=== PATIENT | male | born 1985 | race Caucasian/White ===

== ENCOUNTER 2019-03-06 20:31 | Emergency (ER) | payer SELFPAY ==
[2019-03-06] MEDS ORDERED: Ondansetron PF 4 MG/2 ML Vial ONE (21:12)
[2019-03-06] MEDS ORDERED: Lorazepam 2 MG/ML VIAL ONE ×2 (21:12→22:30)
[2019-03-06 21:32] LABS: #Lymphocytes 1.7 thou/uL (1.20-3.40); #Monocytes 0.2 thou/uL (0.11-0.59); #Neutrophils 1.6 thou/uL (1.40-6.50); %Basophils 0.8 % (0.0-1.0); %Eosinophils 0.4 % (0.0-10.0); %Lymphocytes 48.3 % (21.0-51.0); %Monocytes 5.1 % (0.0-10.0); %Neutrophils 45.5 % (42.0-75.0); Hemoglobin 15.8 g/dL (14.0-18.0); Mean Corpuscular HGB CONC 33.5 g/dL (32.0-36.0); Mean Corpuscular Hemoglobin 33.3 pg (27.0-31.0); Mean Corpuscular Volume 99.5 fL (78.0-98.0); Mean Platelet Volume 6.7 fL (7.4-10.4); Platelet Count 242 thou/uL (130-400); RBC Distribution Width 12.2 % (11.5-14.5); Red Blood Cell (RBC) Count 4.74 mill/uL (4.70-6.10); White Blood Cell (WBC) Count 3.6 thou/uL (4.8-10.8)
--- NOTE | 2019-03-06 21:32 | RAD ---
CHEST 1 VIEW: Date: 03/06/19 HISTORY: Chest pain. FINDINGS: Minimal linear and parenchymal changes overlying the right infrahilar region which appear to be old. Heart size is within normal limits. Lungs are clear. IMPRESSION: No acute intrathoracic disease. POS: RRE
[2019-03-06 21:50] LABS: ALT (SGPT) 30 U/L (8-55); AST (SGOT) 78 U/L (5-34); Acetaminophen Less than 6.0 mcg/mL (10.0-30.0); Albumin 4.3 g/dL (3.5-5.0); Alcohol 334 mg/dL (Less than 10); Alkaline Phosphatase 47 U/L (40-150); Anion Gap 18 mmol/L (10-20); BUN (Urea Nitrogen) 7 mg/dL (8.9-20.6); Bilirubin, Total 0.6 mg/dL (0.2-1.2); CK (CPK) 54 U/L (30-200); Calc. Creatinine Clearance 0 mL/min (70-130); Calcium 9.3 mg/dL (7.8-10.44); Carbon Dioxide 24 mmol/L (22-29); Chloride 104 mmol/L (98-107); Estimated GFR-MDRD Greater than 90; Glucose 85 mg/dL (70-105); Lipase 47 U/L (8-78); Potassium 4.8 mmol/L (3.5-5.1); Protein, Total 7.3 g/dL (6.0-8.3); Salicylate Less than 8.0 mg/dL (15.0-30.0); Sodium 141 mmol/L (136-145)
[2019-03-06] MEDS ORDERED: hydrOXYzine 25 MG TAB ONE (22:44)
[2019-03-06 23:12] LABS: Bilirubin Negative (Negative); Blood, Urine Negative (Negative); Clarity CLEAR (Clear); Glucose, Urine (Dipstick) Negative (Negative); Leukocyte Negative (Negative); Nitrite Negative (Negative); Protein, Urine (Dipstick) Negative (Neg-Trace); Specific Gravity, Urine 1.011 (1.002-1.036); Urobilinogen 0.2 mg/dL (0.2-1.0)
[2019-03-06 23:16] LABS: Amphetamine Not Detected (NotDetected); Barbiturates Screen Not Detected (NotDetected); Benzodiazepine Screen Not Detected (NotDetected); Cocaine Metabolite Screen Not Detected (NotDetected); Medtox Reader # READER 1; Methadone Not Detected (NotDetected); Methamphetamine Not Detected (NotDetected); Opiate Screen Not Detected (NotDetected); Oxycodone Screen Not Detected (NotDetected); Phencyclidine (PCP) Not Detected (NotDetected); THC/Cannabinoid Screen Detected (NotDetected); Tricyclic Screen Not Detected (NotDetected)
[2019-03-06 23:17] LABS: Medtox Control Line Valid? VALID (VALID)
--- NOTE | 2019-03-10 17:00 | EKG ---
Test Reason : Blood Pressure : / mmHG Vent. Rate : 095 BPM Atrial Rate : 095 BPM P-R Int : 116 ms QRS Dur : 090 ms QT Int : 376 ms P-R-T Axes : 015 -01 -05 degrees QTc Int : 472 ms Sinus rhythm with occasional Premature ventricular complexes Otherwise normal ECG Confirmed by DANG ALLEN DO ([id number]), television news video editor BAY FLOYD ([id number]) on 03/10/2019 4:59:53 PM Referred By: Confirmed By:DANG ALLEN DO
== END 2019-03-07 01:56 | disposition home or self-care (01) ==
LOC: ERS 20:31
DX: F10.129 Alcohol abuse with intoxication, unspecified (principal); F41.9 Anxiety disorder, unspecified; F43.0 Acute stress reaction; F17.210 Nicotine dependence, cigarettes, uncomplicated; Z71.6 Tobacco abuse counseling; Y90.8 Blood alcohol level of 240 mg/100 ml or more
CPT/HCPCS: 36415; 71045; 80053; 80306; 80307; 81003; 82550; 83690; 84484; 85025; 93005; 94760; 96361; 96374; 96375; 96376; 99406; J2060; J2405

== ENCOUNTER 2019-05-13 18:44 | Inpatient (IN) | payer BC, SELFPAY ==
[2019-05-13 19:22] LABS: Hemoglobin 16.6 g/dL (14.0-18.0); Mean Corpuscular HGB CONC 35.5 g/dL (32.0-36.0); Mean Corpuscular Hemoglobin 33.1 pg (27.0-31.0); Mean Corpuscular Volume 93.3 fL (78.0-98.0); Mean Platelet Volume 6.8 fL (7.4-10.4); Platelet Count 318 thou/uL (130-400); RBC Distribution Width 11.2 % (11.5-14.5); Red Blood Cell (RBC) Count 5.03 mill/uL (4.70-6.10); White Blood Cell (WBC) Count 5.7 thou/uL (4.8-10.8)
--- NOTE | 2019-05-13 19:23 | RAD ---
XR Chest 1 View Portable History: Ethanol detox Comparison: Chest radiograph March 2019 Findings: There is limited due to rightward patient rotation. Lungs are clear. No pneumothorax or eff usion. Cardiac silhouette and mediastinal contours are within normal limits. Impression: No acute intrathoracic abnormality.
[2019-05-13] MEDS ORDERED: Diazepam 5 MG TAB ONE (19:26)
[2019-05-13] MEDS ORDERED: Multivitamins, Adult 10 ML, Thiamine HCl 100 MG, Folic Acid 1 MG in Dextrose 5 %-0.45 %... IV ONE (19:30)
[2019-05-13 19:40] LABS: Band 1 % (5-11); Lymphocytes 35 % (21-51); MDiff Complete? YES; Monocytes 11 % (0-10); Neutrophil 36 % (42-75); Platelet Morphology Comment Appears Adequate; RBC Morphology Normal; Reactive Lymphocytes 16 % (0-10)
[2019-05-13 19:43] LABS: ALT (SGPT) 14 U/L (8-55); AST (SGOT) 25 U/L (5-34); Albumin 4.3 g/dL (3.5-5.0); Alkaline Phosphatase 58 U/L (40-150); Anion Gap 15 mmol/L (10-20); BUN (Urea Nitrogen) 6 mg/dL (8.9-20.6); Bilirubin, Total 0.3 mg/dL (0.2-1.2); Calc. Creatinine Clearance 0 mL/min (70-130); Calcium 9.3 mg/dL (7.8-10.44); Carbon Dioxide 24 mmol/L (22-29); Chloride 104 mmol/L (98-107); Estimated GFR-MDRD Greater than 90; Globulin 3.2 g/dL (2.4-3.5); Glucose 127 mg/dL (70-105); Lipase 38 U/L (8-78); Potassium 4.1 mmol/L (3.5-5.1); Protein, Total 7.5 g/dL (6.0-8.3); Sodium 139 mmol/L (136-145)
[2019-05-13 19:48] LABS: Alcohol 427 mg/dL (Less than 10)
[2019-05-13 19:48] LABS: Acetaminophen Less than 6.0 mcg/mL (10.0-30.0); CK (CPK) 80 U/L (30-200); Salicylate Less than 8.0 mg/dL (15.0-30.0)
[2019-05-13 19:54] LABS: Alcohol 414 mg/dL (Less than 10)
[2019-05-13 19:55] LABS: Bilirubin Negative (Negative); Blood, Urine Negative (Negative); Clarity Clear (Clear); Glucose, Urine (Dipstick) Normal (Negative); Leukocyte Negative Leu/uL (Negative); Nitrite Negative (Negative); Protein, Urine (Dipstick) Negative (Neg-Trace); Urobilinogen Normal mg/dL (Less than 2)
[2019-05-13 20:01] LABS: Medtox Reader # READER 4
[2019-05-13 20:02] LABS: Amphetamine Not Detected (NotDetected); Barbiturates Screen Not Detected (NotDetected); Benzodiazepine Screen Not Detected (NotDetected); Cocaine Metabolite Screen Not Detected (NotDetected); Medtox Control Line Valid? VALID (VALID); Methadone Not Detected (NotDetected); Methamphetamine Not Detected (NotDetected); Opiate Screen Not Detected (NotDetected); Oxycodone Screen Not Detected (NotDetected); Phencyclidine (PCP) Not Detected (NotDetected); THC/Cannabinoid Screen Not Detected (NotDetected); Tricyclic Screen Not Detected (NotDetected)
[2019-05-13] MEDS ORDERED: Ondansetron ODT 4 MG TAB PO PRN (21:33)
[2019-05-13] MEDS ORDERED: Senokot S 8.6-50 MG TAB PO PRN (21:33)
[2019-05-13] MEDS ORDERED: Acetaminophen 325 MG TAB PO PRN (21:33)
[2019-05-13] MEDS ORDERED: Diazepam 10 MG/2 ML SYRINGE IVP PRN (21:45)
[2019-05-13] MEDS ORDERED: Diazepam 5 MG TAB PO PRN (21:57)
[2019-05-13] MEDS ORDERED: Diazepam 5 MG TAB PO SCH (22:00)
[2019-05-13] MEDS: Lactated Ringer's 1,000 ML IV SCH (22:14)
[2019-05-13 22:50] LABS: INR-International Normal Ratio 0.9; PTT 25.4 SEC (22.9-36.1); Prothrombin Time 12.4 SEC (12.0-14.7)
--- NOTE | 2019-05-13 22:52 | PDOC.EVN ---
Event Note - Event Note Event Note: Date/Time: 05/13/19 9669 I personally evaluated the patient and discussed the management with Dr. Eid at the time of admission. her H&P is pending. I agree with the History, Examination, Assessment and Plan as discussed with any addition or exceptions noted below.
[2019-05-13 22:54] VITALS: BMI 28.5
[2019-05-14 00:20] LABS: Troponin I Less than 0.010 ng/mL (< 0.028)
--- NOTE | 2019-05-14 00:25 | PDOC.FPRHP ---
- History of Present Illness Chief Complaint: alcohol withdrawal History of Present Illness: Patient is a 33M with PMHx of alcohol abuse, seizure s/p alcohol withdrawal and inpatient psychiatric stay for anxiety depression presents to the ED with a cc of alcohol intoxication with a request to detox. He was seen at the ED within 1 hour of his last reported alcohol drink. He reported drinking 24 beers over the last 24 hours, but usually drinking a 12 pack over the course of 3-4 days. He denies any hallucinations, suicidal/ homicidal ideations, sweating, nausea, vomiting. Endorsed a headache and some chest pain. Also endorsed feeling like "he was going to ." Reports that his girlfriend broke up with him recently and he feels like he has a "Broken heart. " Has reports of seizing during a previous alcohol detox. ED Course: CIWA 12, tremors Banana bag 10mg PO valium - Allergies/Adverse Reactions Allergies Allergy/AdvReac Type Severity Reaction Status Date / Time No Known Allergies Allergy Verified 05/13/19 22:52 - Home Medications Medication Instructions Recorded Confirmed Type No Known 05/13/19 05/13/19 History - History PMHx:alcohol abuse, seizures with alcohol withdrawal, anxiety, depression PSHx: R ACL repair FHx:non-contributory Social:no drug use, no smoking, drinks reportedly 1 12 pack every 3-4 days - Review of Systems General: denies: fever/chills, night sweats Eyes: denies: eye pain, vision changes ENT: reports: other (headache). denies: nasal congestion, rhinorrhea Respiratory: denies: cough, shortness of breath Cardiovascular: reports: chest pain. denies: edema Gastrointestinal: denies: nausea, vomiting, diarrhea, constipation Genitourinary: denies: incontinence, dysuria Skin: denies: rashes, jaundice Musculoskeletal: reports: pain. denies: swelling Neurological: denies: numbness, syncope, seizure Psychological: reports: anxiety, depression - Vital signs BP: [115/83] HR: [117] RR: [20] Tmax: [98.7] Pox: [94]% on [RA] Wt: [80.3kg] - Physical Exam Constitutional: NAD, well developed HEENT: normocephalic and atraumatic, EOMI, no scleral icterus, other ( horizontal nystagmus, not PERRLA) Neck: supple, trachea midline Heart: RRR, normal S1/S2, pulses present, no edema Lungs: CTAB, no respiratory distress Abdomen: soft, non-tender Musculoskeletal: normal structure, ROM grossly normal Neurological: CN II-XII intact, other (mild hand tremor bilaterally) Skin: good turgor, capillary refill <2 seconds Heme/Lymphatic: no unusual bruising or bleeding, no purpura Psychiatric: intact recent and remote memory -Psychiatric: anxious about being hospitalized; fearful of having seizures like the last time he had an alcohol withdrawal FMR H&P: Results - Labs Result Diagrams: 05/14/19 03:17 05/14/19 03:17 Lab results: WBC 5.7 thou/uL (4.8-10.8) 05/13/19 19:10 Hgb 16.6 g/dL (14.0-18.0) 05/13/19 19:10 Hct 46.9 % (42.0-52.0) 05/13/19 19:10 MCV 93.3 fL (78.0-98.0) 05/13/19 19:10 Plt Count 318 thou/uL (130-400) 05/13/19 19:10 Band Neuts % (Manual) 1 % (5-11) L 05/13/19 19:10 Sodium 139 mmol/L (136-145) 05/13/19 19:09 Potassium 4.1 mmol/L (3.5-5.1) 05/13/19 19:09 Chloride 104 mmol/L (98-107) 05/13/19 19:09 Carbon Dioxide 24 mmol/L (22-29) 05/13/19 19:09 BUN 6 mg/dL (8.9-20.6) L 05/13/19 19:09 Creatinine 0.81 mg/dL (0.7-1.3) 05/13/19 19:09 Glucose 127 mg/dL (70-105) H 05/13/19 19:09 Calcium 9.3 mg/dL (7.8-10.44) 05/13/19 19:09 Total Bilirubin 0.3 mg/dL (0.2-1.2) 05/13/19 19:09 AST 25 U/L (5-34) 05/13/19 19:09 ALT 14 U/L (8-55) 05/13/19 19:09 Alkaline Phosphatase 58 U/L (40-150) 05/13/19 19:09 Creatine Kinase 80 U/L (30-200) 05/13/19 19:10 Serum Total Protein 7.5 g/dL (6.0-8.3) 05/13/19 19:09 Albumin 4.3 g/dL (3.5-5.0) 05/13/19 19:09 Lipase 38 U/L (8-78) 05/13/19 19:09 Urine Ketones Negative mg/dL (Negative) 05/13/19 19:36 Urine Blood Negative (Negative) 05/13/19 19:36 Urine Nitrite Negative (Negative) 05/13/19 19:36 Ur Leukocyte Esterase Negative Blossom/uL (Negative) 05/13/19 19:36 - EKG Interpretation EKG: sinus tach, slight left axis deviation - Radiology Interpretation Chest x-ray Status: report reviewed by me (No acute processes) FMR H&P: A/P - Problem List (1) Alcohol abuse Current Visit: Yes Status: Acute Code(s): F10.10 - ALCOHOL ABUSE, UNCOMPLICATED (2) Alcohol intoxication Current Visit: Yes Status: Acute (3) Alcohol withdrawal Current Visit: Yes Status: Acute Code(s): F10.239 - ALCOHOL DEPENDENCE WITH WITHDRAWAL, UNSPECIFIED (4) Chest pain, rule out acute myocardial infarction Current Visit: Yes Status: Acute Code(s): R07.9 - CHEST PAIN, UNSPECIFIED (5) Head ache Current Visit: Yes Status: Acute Code(s): R51 - HEADACHE - Plan #Alcohol abuse/intox/detox -alcohol on admission 427>414 -given banana bag + 10mg valium in ED -horizontal nystagmus and bilateral hand tremor on exam -CIWA score 12 in ED -ASE protocol -10mg Diazepam Q6H scheduled -5mg Diazepam Q1H prn -multivit with thiamine + folate -coag panel -IVF #CP r/o -complaining of cp in the ED -EKG normal sinus tach with slight left axis deviation, no signs of ischemia -UDS negative for common drugs -trop <0.01, continue to trend #Headache -likely 2/2 alcohol abuse, withdrawal -AST/ALT wnl, acetaminophen PRN DVT proph: lovenox GI proph: protonix Diet: regular Code Status: Full Dispo: inpatient for alcohol detox and ASE protocol FMR H&P: Upper Level - Plan Date/Time: 05/13/19 3861 I, Jeramie Davies MD, have evaluated this patient and agree with findings/plan as outlined by phd internship resident. Pertinent changes/additions are listed here. Earle Domingo is a 33 year old M with a PMH of alcohol abuse, anxiety and depression who was brought into the ED by parents for alcohol detox. Patient stated that he had finished a case of beer over the last 24 hours and his last drink was about one hour [employer]. He has a history of alcohol withdrawal seizures ( hospitalization 4 months ago) as well as hx of psychiatric hospitalization for anxiety/depression. States that he normally drinks about a 6-12 pk of beer a day. He denied any tremors, auditory/visual/tactile hallucinations, sweating. On admission, his blood alcohol level was 427. Other labs were normal and are documented above. UDS neg. CXR neg. UA neg. Patient was given 10 mg valium and banana bag in the ED. Admitted for alcohol detox with withdrawal precautions. ASE protocol initiated. Due to history of withdrawal seizures, scheduling valium 10 mg q6h and prn valium 5 mg q1h. Supplementing thiamine, folate, mag. Will monitor closely. Pt also noted atypical chest pain, EKG showed no findings suggestive of ischemia, will trend troponins. Addendum - Attending - Attending Attestation Date/Time: 05/14/19 8360 I personally evaluated the patient and discussed the management with Drs. Eid and Samson last night at the time of admission. I agree with the History, Examination, Assessment and Plan documented above with any addition or exceptions noted below.
[2019-05-14] MEDS: Lactated Ringer's 1,000 ML IV SCH ×2 (01:26→10:07)
[2019-05-14] MEDS ORDERED: Sodium Chloride 0.9% (PF) 10 ML VIAL FS PRN (03:03)
[2019-05-14 03:25] LABS: #Basophils 0.1 thou/uL (0.0-0.2); #Eosinphils 0.1 thou/uL (0.0-0.7); #Lymphocytes 2.5 thou/uL (1.20-3.40); #Monocytes 0.5 thou/uL (0.11-0.59); #Neutrophils 1.9 thou/uL (1.40-6.50); %Basophils 1.1 % (0.0-1.0); %Eosinophils 1.4 % (0.0-10.0); %Monocytes 10.6 % (0.0-10.0); %Neutrophils 37.9 % (42.0-75.0); Hemoglobin 14.7 g/dL (14.0-18.0); Mean Corpuscular HGB CONC 35.5 g/dL (32.0-36.0); Mean Corpuscular Hemoglobin 33.8 pg (27.0-31.0); Mean Corpuscular Volume 95.3 fL (78.0-98.0); Platelet Count 260 thou/uL (130-400); RBC Distribution Width 11.3 % (11.5-14.5); Red Blood Cell (RBC) Count 4.34 mill/uL (4.70-6.10)
[2019-05-14 03:44] LABS: Anion Gap 17 mmol/L (10-20); BUN (Urea Nitrogen) 6 mg/dL (8.9-20.6); Calc. Creatinine Clearance 144 mL/min (70-130); Carbon Dioxide 24 mmol/L (22-29); Chloride 106 mmol/L (98-107); Estimated GFR-MDRD Greater than 90; Glucose 97 mg/dL (70-105); Potassium 3.8 mmol/L (3.5-5.1); Sodium 143 mmol/L (136-145)
[2019-05-14 03:51] LABS: Troponin I Less than 0.010 ng/mL (< 0.028)
[2019-05-14] MEDS: Diazepam 5 MG TAB PO SCH ×4 (05:11→23:08)
[2019-05-14] MEDS ORDERED: hydrOXYzine 10 MG/5 ML UDCUP PO PRN (06:54)
--- NOTE | 2019-05-14 06:57 | PDOC.FM ---
- Subjective Subjective: Patient reports chest pain "that feels like anxiety" this AM. Denies SOB. Denies nausea/vomiting. - Objective Vital Signs & Weight: Vital Signs (12 hours) Temp BP Pulse Ox 05/14/19 04:00 98.7 F 05/14/19 00:00 99.0 F 05/13/19 22:00 102/66 96 05/13/19 21:50 98.5 F Weight Weight 81.306 kg Most Recent Monitor Data Heart Rate from ECG 89 NIBP 100/61 NIBP BP-Mean 74 Respiration from ECG 15 SpO2 95 I&O: 05/12/19 05/13/19 05/14/19 06:59 06:59 06:59 Intake Total 2500 Output Total 625 Balance 1875 Result Diagrams: 05/14/19 03:17 05/14/19 03:17 Phys Exam - Physical Examination Constitutional: NAD HEENT: PERRLA, moist MMs Respiratory: no wheezing, clear to auscultation bilateral Cardiovascular: RRR, no significant murmur Gastrointestinal: soft, non-tender Musculoskeletal: no edema, pulses present Neurological: non-focal, moves all 4 limbs Psychiatric: normal affect Dx/Plan (1) Alcohol abuse Code(s): F10.10 - ALCOHOL ABUSE, UNCOMPLICATED Status: Acute (2) Alcohol intoxication Status: Acute (3) Chest pain, rule out acute myocardial infarction Code(s): R07.9 - CHEST PAIN, UNSPECIFIED Status: Acute (4) Head ache Code(s): R51 - HEADACHE Status: Acute - Plan Plan: #Alcohol abuse intoxication, with history of withdrawal seizures 4 mos ago -alcohol blood level: 427 -> 414 -ED: given banana bag + 10mg valium -CIWA score 12 in ED -ASE protocol, 8, 7, and 6 overnight -10mg Diazepam Q6H scheduled, 5mg Diazepam Q1H prn -multivit with thiamine + folate -IVF LR @ 170 -Continue ASE protocol #Atypical CP -complaining of cp in the ED; associates this AM with anxiety -EKG normal sinus tach with slight left axis deviation, no signs of ischemia -UDS negative for common drugs -trop negative x3 #Headache, resolved -likely 2/2 alcohol abuse, withdrawal, now resolved #MDD and THUAN -Follow up with PCP outpatient for further management -hydroxyzine PRN anxiety DVT proph: lovenox GI proph: protonix Diet: regular Code Status: Full Dispo: continue to monitor for s/s withdrawal in ICU Addendum - Attending - Attending Attestation Date/Time: 05/14/19 9671 I personally evaluated the patient and discussed the management with Dr. Leung. I agree with the History, Examination, Assessment and Plan documented above with any addition or exceptions noted below. Pt is still feeling very anxious which he states is chronic. Hydroxyzine has been added. He continues on scheduled benzos with prn meds for symptoms. Will monitor in imcu. Pt has history of withdrawal seizures in the past. He does state he was in AA until about 9 months ago and has expressed interest in returning to AA following this hospitalization.
[2019-05-14] MEDS ORDERED: Folic Acid 1 MG TAB PO SCH (09:00)
[2019-05-14] MEDS ORDERED: Pantoprazole 40 MG VIAL IVP SCH (09:00)
[2019-05-14] MEDS ORDERED: Magnesium Oxide 400 MG TAB PO SCH (09:00)
[2019-05-14] MEDS ORDERED: Thiamine 100 MG TAB PO SCH (09:00)
[2019-05-14] MEDS: Enoxaparin Sodium 40 MG/0.4 ML SYRINGE SC SCH (10:06)
[2019-05-14] MEDS: Diazepam 5 MG TAB PO PRN ×2 (10:06→16:05)
[2019-05-14] MEDS: Multivitamin W/ Minerals 1 TAB PO SCH (10:06)
--- NOTE | 2019-05-14 12:49 | CON ---
DATE OF CONSULTATION: 05/14/2019 REASON FOR CONSULTATION: [facility] patient. HISTORY OF PRESENT ILLNESS: The patient is a 33-year-old white male with past medical history significant for alcohol abuse. He previously had very heavy alcohol use. Ultimately, he quit several months ago. For the past 2 months, he says he has been sober. That being said, he went on "Binder" for 3 days prior to this hospital stay. He presented acutely decompensated. He denies any fevers. He is tremulous. He is not having any night sweats and denies having any cough. He had some nausea and one episode of vomiting. Otherwise, he is in his usual state of health and has no specific complaints. He does have a history of abrupt withdrawal from alcohol that precipitated a seizure. That being said, he currently understands and is perfectly oriented. PAST MEDICAL HISTORY: 1. Alcohol abuse. 2. Seizure disorder associated with withdrawal from alcohol. 3. Anxiety disorder. 4. Major depressive disorder. PAST SURGICAL HISTORY: Right ACL repair. FAMILY HISTORY: Noncontributory. SOCIAL HISTORY: No current tobacco or illicit drug use. He drank over 48 beers in the last couple of days. Prior to that, he indicates that he was sober for at least 2 months. ALLERGIES: NO KNOWN DRUG ALLERGIES. MEDICATIONS: List of his inpatient medications were reviewed. No specific updates were made at this time. REVIEW OF SYSTEMS: General, head, ears, eyes, nose, throat, cardiovascular, respiratory, GI, , musculoskeletal, neurologic, and skin is negative except as mentioned in the HPI. PHYSICAL EXAMINATION: VITAL SIGNS: Afebrile, pulse 83, blood pressure 104/68, respirations 14, and saturation 97% on room air. GENERAL: The patient is awake and alert, in no apparent distress. LUNGS: Excellent air entry. There is no prolonged expiratory phase. No wheezing or rhonchi appreciated. HEART: Normal rate, regular. ABDOMEN: Soft, nontender, and nondistended. Bowel sounds are positive. MUSCULOSKELETAL: No cyanosis or clubbing. No pitting in bilateral lower extremities. NEUROLOGIC: Grossly nonfocal. It demonstrates a diffuse coarse tremor that goes away when distracted. LABORATORY DATA: WBC 5.0, hemoglobin 14.7, and platelets 260,000. INR 0.9. Basic metabolic profile and liver function studies are unremarkable. Cardiac enzymes are negative x3. CK is 80. Urinalysis is unremarkable. Urine drug screen is positive for alcohol, which is trending downward at this point. It still remains quite elevated. IMAGING DATA: Chest x-ray demonstrates no acute cardiopulmonary abnormality. ASSESSMENT: 1. Alcohol intoxication. 2. History of Delirium Tremens with withdrawal seizures. 3. Minimal withdrawal symptoms. DISCUSSION AND PLAN: The patient is stable for transition out of the ICU to the medical unit. He can be watched in the hospital for the next 24 to 48 hours. Currently, he is oriented x3. He is certainly not delirious. He has a history of withdrawal seizures, but if his story is correct and he has abstained from alcohol from protracted period of time and only drank heavily for 3 days, he really should not be at risk for recurrent withdrawal seizures. When he arrives on the floor , he will have no further requirements for inpatient Pulmonary/Critical Care opinion. To palliate some of his withdrawal symptoms, a benzodiazepine taper has been initiated. When he arrives on the floor, I will sign off. Please call with additional questions or concerns through time. 70 minutes have been devoted to this patient in various activities. I personally reviewed all imaging studies and laboratory data noted within this document. For fifty percent of this time, I was interacting with the patient at the bedside or coordinating care with the care team. For the remainder of the time I was immediately available to the patient in the hospital unit. Job ID: [id number] MTDD
[2019-05-14] MEDS: hydrOXYzine 25 MG TAB PO PRN (20:14)
[2019-05-15] MEDS: Diazepam 5 MG TAB PO SCH ×5 (06:04→23:25)
--- NOTE | 2019-05-15 08:52 | PDOC.FM ---
- Subjective Subjective: Patient feels well this AM, denies anxiety. No SOB or chest pain. Denies pain. - Objective Vital Signs & Weight: Vital Signs (12 hours) Temp Pulse Resp BP Pulse Ox 05/15/19 07:11 97.4 F L 05/15/19 04:00 135/95 H 05/15/19 03:27 96.7 F L 96 05/15/19 00:00 135/95 H 05/14/19 23:54 87 17 05/14/19 23:39 97.2 F L 99 Weight Weight 81.306 kg Most Recent Monitor Data Heart Rate from ECG 81 NIBP 116/68 NIBP BP-Mean 84 Respiration from ECG 13 SpO2 100 I&O: 05/14/19 05/15/19 05/16/19 06:59 06:59 06:59 Intake Total 4500 1830 Output Total 625 2350 Balance 3875 -520 Result Diagrams: 05/14/19 03:17 05/14/19 03:17 Phys Exam - Physical Examination Constitutional: NAD HEENT: PERRLA, moist MMs dilated pupils but reactive Respiratory: no wheezing, clear to auscultation bilateral Cardiovascular: RRR, no significant murmur Gastrointestinal: soft, non-tender, no distention, positive bowel sounds Musculoskeletal: no edema, pulses present Neurological: non-focal, moves all 4 limbs Psychiatric: normal affect Skin: normal turgor, cap refill <2 seconds Dx/Plan (1) Alcohol abuse Code(s): F10.10 - ALCOHOL ABUSE, UNCOMPLICATED Status: Acute (2) Alcohol intoxication Status: Acute (3) Chest pain, rule out acute myocardial infarction Code(s): R07.9 - CHEST PAIN, UNSPECIFIED Status: Acute (4) Head ache Code(s): R51 - HEADACHE Status: Acute - Plan Plan: #Alcohol abuse & intoxication (resolved), with history of withdrawal seizures -alcohol blood level: 427 -> 414 -> less than 10 -ASE scores 3 -continue 10mg Diazepam Q6H scheduled for another 24 hours, with PRNs available -transition out of ICU today -continue multivit with thiamine + folate -Continue ASE protocol -MIVF discontinued #Atypical CP, resolved -complaining of cp in the ED; associates this AM with anxiety -EKG normal sinus tach with slight left axis deviation, no signs of ischemia -UDS negative for common drugs besides alcohol -trop negative x3 #Headache, resolved -likely 2/2 alcohol abuse, withdrawal, now resolved #MDD and THUAN -Follow up with PCP outpatient for further management -hydroxyzine PRN anxiety DVT proph: lovenox GI proph: protonix Diet: regular Code Status: Full Dispo: continue to monitor for s/s withdrawal in ICU, plan to transition to the floor today Addendum - Attending - Attending Attestation Date/Time: 05/15/19 1531 I personally evaluated the patient and discussed the management with Dr. Leung. I agree with the History, Examination, Assessment and Plan documented above with any addition or exceptions noted below. Pt will transfer to medical. He is improving. Pt is motivated to quit drinking. Will get case mgmt to offer resources.
[2019-05-15] MEDS: Enoxaparin Sodium 40 MG/0.4 ML SYRINGE SC SCH (09:19)
[2019-05-15] MEDS: Folic Acid 1 MG TAB PO SCH (09:19)
[2019-05-15] MEDS: Multivitamin W/ Minerals 1 TAB PO SCH (09:20)
[2019-05-15] MEDS: Thiamine 100 MG TAB PO SCH (09:20)
--- NOTE | 2019-05-15 10:25 | PRG ---
DATE OF SERVICE: 05/15/2019 SERVICE: Pulmonary Medicine. INTERVAL HISTORY: The patient is doing fine from respiratory standpoint. He is breathing comfortably. He is no longer having significant jitters. He denies any current fevers, chills, or overnight events. Otherwise, his appetite is improving, he feels like he has returned to his usual state of health. PHYSICAL EXAMINATION: VITAL SIGNS: Afebrile, pulse 20, blood pressure 118/74, respirations 14, and saturation 97% on room air. GENERAL: The patient is awake and alert, in no apparent distress. LUNGS: Very good air entry without any prolonged expiratory phase or wheezing present. HEART: Normal rate and regular. ABDOMEN: Soft, nontender, nondistended. Bowel sounds are positive. MUSCULOSKELETAL: No cyanosis or clubbing. No pitting in the bilateral lower extremities. NEUROLOGIC: Grossly nonfocal. LABORATORY DATA: Plasma alcohol level has resolved and is below the assay limit of 10. ASSESSMENT: 1. Acute alcohol intoxication, resolved. 2. History of delirium tremens with withdrawal seizures. 3. Mild withdrawal symptoms, resolved. DISCUSSION AND PLAN: From my perspective, the patient is stable for transition out of the hospital. He should not be at increased risk of having withdrawal seizures as he had abstained from alcohol for 2 months prior to this recent 3-day "binder." He has no ongoing medical issues that require Pulmonary Critical Care opinion, and I will sign off. Hopefully, he can be dismissed from the hospital today. Job ID: [id number] MTDD
[2019-05-15] MEDS: hydrOXYzine 25 MG TAB PO PRN (21:24)
[2019-05-16] MEDS: Diazepam 5 MG TAB PO SCH ×3 (06:19→11:29)
[2019-05-16 07:46] VITALS: BP 124/77; TEMP 97.7
--- NOTE | 2019-05-16 08:20 | PDOC.FM ---
- Subjective Subjective: Patient report he feels well. He states he was slightly anxious overnight. Reports he is wanting to get back home and to work, and to get his daughter signed up for school. States on his own that he desires not to drink anymore, and plans to go to after discharge. Discussed possible discharge on librium taper, and the danger of drinking while on the medication. He agrees that he will not drink alcohol after discharge. - Objective Vital Signs & Weight: Vital Signs (12 hours) Temp Pulse Resp BP BP Pulse Ox 05/16/19 07:46 97.7 F 75 124/77 97 05/16/19 04:00 97.3 F L 80 16 98 05/16/19 00:00 128/85 05/15/19 23:21 98.8 F 97 Weight Weight 81.306 kg Most Recent Monitor Data Heart Rate from ECG 81 NIBP 124/77 NIBP BP-Mean 92 Respiration from ECG 13 SpO2 100 I&O: 05/15/19 05/16/19 05/17/19 06:59 06:59 06:59 Intake Total 1830 1700 Output Total 2350 1000 Balance -520 700 Result Diagrams: 05/14/19 03:17 05/14/19 03:17 Phys Exam - Physical Examination Constitutional: NAD Respiratory: no wheezing, clear to auscultation bilateral Cardiovascular: RRR, no significant murmur Gastrointestinal: soft, non-tender, no distention, positive bowel sounds Musculoskeletal: no edema, pulses present Neurological: non-focal, moves all 4 limbs Psychiatric: normal affect Skin: no rash, normal turgor Dx/Plan (1) Alcohol abuse Code(s): F10.10 - ALCOHOL ABUSE, UNCOMPLICATED Status: Acute (2) Alcohol intoxication Status: Acute (3) Chest pain, rule out acute myocardial infarction Code(s): R07.9 - CHEST PAIN, UNSPECIFIED Status: Acute (4) Head ache Code(s): R51 - HEADACHE Status: Acute - Plan Plan: #Alcohol abuse & intoxication, resolved -history of withdrawal seizures -alcohol blood level: 427 -> 414 -> less than 10 -ASE scores 2, 5, 2 overnight; no PRN dosing of diazepam needed -Plan to discharge home today on librium taper. Patient understands and agrees he will not drink with this medication -continue multivit with thiamine + folate #Atypical CP, resolved -complaining of cp in the ED; associates this AM with anxiety -EKG normal sinus tach with slight left axis deviation, no signs of ischemia -UDS negative for common drugs besides alcohol -trop negative x3 #Headache, resolved -likely 2/2 alcohol abuse, withdrawal, now resolved #MDD and THUAN -Follow up with PCP outpatient for further management DVT proph: lovenox GI proph: protonix Diet: regular Code Status: Full Dispo: plan to discharge to home today on librium taper, pending clinical picture changes. Addendum - Attending - Attending Attestation Date/Time: 05/16/19 2489 I personally evaluated the patient and discussed the management with Dr. Leung. I agree with the History, Examination, Assessment and Plan documented above with any addition or exceptions noted below. The patient is feeling better. He will be discharged home on a librium taper. Pt states he will return to AA.
[2019-05-16] MEDS: Enoxaparin Sodium 40 MG/0.4 ML SYRINGE SC SCH (08:46)
[2019-05-16] MEDS: Folic Acid 1 MG TAB PO SCH (08:47)
[2019-05-16] MEDS: Multivitamin W/ Minerals 1 TAB PO SCH (08:47)
[2019-05-16] MEDS: Thiamine 100 MG TAB PO SCH (08:47)
--- NOTE | 2019-05-18 05:13 | DIS ---
DATE OF ADMISSION: 05/13/2019 DATE OF DISCHARGE: 05/16/2019 RESIDENT: Kirsten Leung MD ADMITTING ATTENDING: Clif Vivas MD DISCHARGE ATTENDING: Aline Mejia MD CONSULTS: Pulmonology, Dr. Barba, 05/14/2019. PROCEDURE PERFORMED: Chest x-ray 05/13/2019, no acute intrathoracic abnormality. PRIMARY DIAGNOSES: 1. Alcohol intoxication. 2. Alcohol withdrawal. 3. Atypical chest pain. SECONDARY DIAGNOSES: 1. Alcohol abuse. 2. Headache. 3. Major depressive disorder and generalized anxiety disorder. DISCHARGE MEDICATIONS: 1. Librium taper: Librium PO q.i.d. for 2 days, then 10 mg p.o. Librium q.i.d. for 2 days. 2. Folic acid 1 mg p.o. daily. 3. Multivitamin with minerals one tab p.o. daily. 4. Thiamine 100 mg p.o. daily. DISCONTINUED MEDICATIONS: None. HISTORY OF PRESENT ILLNESS/HOSPITAL COURSE: The patient is a 33-year-old male with a past medical history of alcohol abuse and alcohol withdrawal leading to withdrawal seizures, as well as inpatient psychiatric stay for anxiety and depression, presented to the ED with chief complaint of alcohol intoxication with a requested detox. The patient reported that his last alcohol drink was 1 hour prior to being seen in the ED. He reports he had been drinking 24 beers daily throughout the last four days. He denied hallucinations, suicidal or homicidal ideation, sweating, nausea or vomiting. He was endorsing headache and chest pain, and feeling like he was going to . He also reports a recent break-up with his girlfriend and reports he had a broken heart. Again, he had history of seizing during previous alcohol withdrawals. The patient was given a banana bag, as well as Valium. CIWA was 12 on admission. He was tremulous and anxious. The patient was admitted to the [facility]. His alcohol blood levels trended down from 427 to 0. The patient was placed on scheduled diazepam. His A scores continued to trend down. He was continued on multivitamin with thiamine and folate. His anxiety and tremulousness improved. He was discharged on a Librium taper. We discussed with patient that the dangers of drinking alcohol while he is on Librium. The patient stated that he was planning to follow up with AA and was not going to drink alcohol anymore. Atypical chest pain, he associated with his anxiety. His EKG showed normal sinus tach with a slight left axis deviation. His UDS was negative except for alcohol. Trops were negative x3. The patient reports he is not currently on medications for major depressive disorder, generalized anxiety, but he has been at an inpatient psych facility at some point in time for unknown reason. The patient is to follow up with PCP for further management of psychiatric concerns. DISPOSITION: Stable. DISCHARGE INSTRUCTIONS: 1. Location: Home. 2. Diet: Regular. 3. Activity: As tolerated. 4. Followup: Follow up with PCP within 1 week. The patient was given information to establish care with Dr. Kirsten Leung at [facility]. Job ID: [id number] [facility]
--- NOTE | 2019-05-19 15:15 | EKG ---
Test Reason : Blood Pressure : / mmHG Vent. Rate : 106 BPM Atrial Rate : 106 BPM P-R Int : 146 ms QRS Dur : 100 ms QT Int : 344 ms P-R-T Axes : 040 002 008 degrees QTc Int : 456 ms Sinus tachycardia with occasional Premature ventricular complexes Incomplete right bundle branch block Borderline ECG Confirmed by CALOS GALVAN D.O. ([id number]), newspaper editor NOEMI TANG ([id number]) on 05/19/2019 3:14:20 PM Referred By: Confirmed By:CALOS GALVAN D.O.
== END 2019-05-16 13:17 | disposition home or self-care (01) | DRG 897 ==
LOC: ERS 18:44 → IMCU/EMU 21:45
PROVIDERS: ADMIT Family Medicine; ATTEND Family Medicine
PROC: HZ2ZZZZ Detoxification Services for Substance Abuse Treatment (ICD-10-PCS; principal; 2019-05-13)
DX: F10.229 Alcohol dependence with intoxication, unspecified (principal); F10.239 Alcohol dependence with withdrawal, unspecified; F17.210 Nicotine dependence, cigarettes, uncomplicated; F32.9 Major depressive disorder, single episode, unspecified; F41.1 Generalized anxiety disorder; R07.89 Other chest pain; R51 Headache; G40.909 Epilepsy, unspecified, not intractable, without status epilepticus
CPT/HCPCS: 36415; 71045; 80048; 80053; 80306; 80307; 81003; 82550; 83690; 84484; 85025; 85610; 85730; 93005; 94760; 96365; C9113; J1650; J3411; J3475; J3490; J7042